=== PATIENT | male | born 1970 | race American Indian/Alaskan Native ===

== ENCOUNTER 2016-06-14 22:07 | Inpatient (IN) | payer MEDICARE ==
[2016-06-15 00:24] LABS: Bacteria,Urine 2+ /HPF (Negative); Bilirubin,Urine NEG (Negative); Blood,Urine LG (Negative); Ketones,Urine NEG (Negative); Leukocyte Esterase,Urine LG (Negative); Nitrite,Urine NEG (Negative); Urobilinogen,Urine < 2.0 mg/dL (<2.0)
[2016-06-15 00:26] LABS: RBC,Urine > 182.0 /HPF (0.0-6.0)
[2016-06-15 00:27] LABS: WBC,Urine > 182.0 /HPF (0.0-6.0)
[2016-06-15] MEDS ORDERED: ZOFRAN IV ONE (05:06)
[2016-06-15] MEDS ORDERED: TORADOL IV ONE (05:06)
[2016-06-15] MEDS ORDERED: NACL 0.9% 1000 ML 1,000 ML IV ONE (05:06)
[2016-06-15] MEDS ORDERED: ROCEPHIN/NS 1 GM/50 ML 50 ML IV ONE ×2 (05:06→16:06)
[2016-06-15 05:52] LABS: Basophils % (Auto) 0.5 % (0.0-1.8); Eosinophils % (Auto) 1.3 % (0.0-4.3); Hematocrit 46.6 % (35.5-45.6); Hemoglobin 15.6 gm/dl (11.8-15.2); Mean Corpuscular HGB Conc 34 % (32-34); Mean Corpuscular Hemoglobin 30 pg (28-32); Mean Corpuscular Volume 91 fl (84-94); Red Blood Count 5.12 M/mm3 (3.65-5.03); Red Cell Distribution Width 14.7 % (13.2-15.2); White Blood Count 11.3 K/mm3 (4.5-11.0)
[2016-06-15 05:56] LABS: Platelet Count 132 K/mm3 (140-440)
--- NOTE | 2016-06-15 06:06 | Cat Scan Report ---
FINAL REPORT PROCEDURE: CT ABDOMEN PELVIS WO CON TECHNIQUE: Computerized axial tomography of the abdomen and pelvis was performed without intravenous contrast. This study is performed without intravascular contrast material and its sensitivity for abdominal and pelvic pathology, including neoplasms, inflammation, abscess, free fluid, thrombosis, arterial dissection and infarction, is reduced compared with a contrast enhanced study. HISTORY: kidney stone COMPARISON: No prior studies are available for comparison. FINDINGS: Visualized lower thorax: No significant abnormality. Liver: Normal size and attenuation. Spleen: Normal size and attenuation. Gallbladder and biliary system: There are gallstones. There is no evidence of cholecystitis or biliary ductal dilatation.. Pancreas: Normal. Adrenals: Normal. Kidneys: There are no kidney stones or ureteral stones.. GI tract: There is no bowel obstruction, colitis or enteritis. The appendix is normal.. Lymph nodes and mesentery: Normal. Vasculature: Normal. Bladder: There is thickening of the urinary bladder wall. There is no mass. Reproductive organs: Normal. Peritoneum: There is no ascites or free air, abscess or adenopathy.. Musculoskeletal structures: No significant abnormality. Other: There is umbilical hernia defect containing omental fat only.. IMPRESSION: There are gallstones. There is no evidence of cholecystitis or biliary ductal dilatation.. There are no kidney stones or ureteral stones.. There is no bowel obstruction, colitis or enteritis. The appendix is normal.. There is thickening of the urinary bladder wall. There is no mass. There is no ascites or free air, abscess or adenopathy.. There is umbilical hernia defect containing omental fat only.. .
--- NOTE | 2016-06-15 06:38 | Emergency Department Report ---
ED Male HPI - General Chief complaint: Urogenital-Male Stated complaint: BLOOD IN URINE Time Seen by Provider: 06/15/16 05:03 Source: patient Mode of arrival: Ambulatory Limitations: No Limitations - History of Present Illness Initial comments: 45-year-old male past medical history HIV, as per patient's CD4 count over 500, undetectable viral load presents with complaint of one week of intermittent hematuria right flank pain fever chills and dysuria. Patient denies any vomiting, occasional sensation of nausea. Patient states that he has had intermittent episodes of bloody urine. Denies any history of kidney stones. States he has been taking his HAART medicines regularly. Onset/Timin -: week(s) Radiation: none Severity: moderate Severity scale (0 -10): 6 Quality: sharp Consistency: intermittent Improves with: none Worsens with: urination - Related Data Sexually active: Yes Home Medications Medication Instructions Recorded Confirmed Last Taken Elviteg/Tavia/Emtric/Tenofo Ala 1 tab PO DAILY 06/15/16 06/15/16 Unknown [Genvoya Tablet] Rosuvastatin (Nf) [Crestor] 10 mg PO QHS 06/15/16 06/15/16 Unknown Allergies Allergy/AdvReac Type Severity Reaction Status Date / Time No Known Allergies Allergy Verified 06/14/16 23:59 ED Review of Systems ROS: Stated complaint: BLOOD IN URINE Other details as noted in HPI Constitutional: denies: chills, fever Eyes: denies: eye pain, eye discharge, vision change ENT: denies: ear pain, throat pain Respiratory: denies: cough, shortness of breath, wheezing Cardiovascular: denies: chest pain, palpitations Endocrine: no symptoms reported Gastrointestinal: denies: abdominal pain, nausea, diarrhea Genitourinary: urgency, dysuria, frequency, hematuria Musculoskeletal: denies: back pain, joint swelling, arthralgia Skin: denies: rash, lesions Neurological: denies: headache, weakness, paresthesias Psychiatric: denies: anxiety, depression Hematological/Lymphatic: denies: easy bleeding, easy bruising ED Past Medical Hx - Past Medical History Previous Medical History?: Yes Hx HIV: Yes Additional medical history: Obesity - Surgical History Past Surgical History?: No - Social History Smoking Status: Never Smoker Substance Use Type: None - Medications Home Medications: Home Medications Medication Instructions Recorded Confirmed Last Taken Type Elviteg/Tavia/Emtric/Tenofo Ala 1 tab PO DAILY 06/15/16 06/15/16 Unknown History [Genvoya Tablet] Rosuvastatin (Nf) [Crestor] 10 mg PO QHS 06/15/16 06/15/16 Unknown History ED Physical Exam - General Limitations: No Limitations General appearance: alert, in no apparent distress - Head Head exam: Present: atraumatic, normocephalic - Eye Eye exam: Present: normal appearance - ENT ENT exam: Present: mucous membranes moist - Neck Neck exam: Present: normal inspection - Respiratory Respiratory exam: Present: normal lung sounds bilaterally. Absent: respiratory distress - Cardiovascular Cardiovascular Exam: Present: regular rate, normal rhythm. Absent: systolic murmur, diastolic murmur, rubs, gallop - GI/Abdominal GI/Abdominal exam: Present: soft, normal bowel sounds - Rectal Rectal exam: Present: deferred - exam: Present: other (positive suprapubic tenderness) - Extremities Exam Extremities exam: Present: normal inspection - Back Exam Back exam: Present: normal inspection, CVA tenderness (R) - Neurological Exam Neurological exam: Present: alert, oriented X3, CN II-XII intact, normal gait - Psychiatric Psychiatric exam: Present: normal affect, normal mood - Skin Skin exam: Present: warm, dry, intact, normal color. Absent: rash ED Course Vital Signs 06/14/16 06/15/16 06/15/16 23:59 05:46 06:16 Temperature 99.4 F Pulse Rate 80 Respiratory 20 18 18 Rate Blood Pressure 139/95 Blood Pressure [Left] O2 Sat by Pulse 100 Oximetry 06/15/16 06/15/16 06:30 14:02 Temperature 99 F 99.5 F Pulse Rate 82 99 H Respiratory 18 18 Rate Blood Pressure Blood Pressure 130/88 131/87 [Left] O2 Sat by Pulse 100 99 Oximetry ED Medical Decision Making - Lab Data Result diagrams: 06/15/16 05:37 06/15/16 05:37 - Medical Decision Making A/P: Cystitis,? Clinical pyelonephritis 1-CT abdomen and pelvis shows no obstructing stone, no perinephric fat stranding , mild bladder wall inflammation 2-pending lactic acid, CMP 3-empirically treated with fluid and Toradol ceftriaxone 1 g 4-discussed case with Dr. Hernandez after reassessment when labs result for possible admission 5- case signed out at 7AM to EDWIN Das, to follow up labs and re-discuss plan w/ dr. hernandez after all results have come back Critical care attestation.: If time is entered above; I have spent that time in minutes in the direct care of this critically ill patient, excluding procedure time. ED Disposition Clinical Impression: Pyelonephritis Disposition: OP ADMITTED IP TO THIS HOSP Is pt being admited?: Yes Does the pt Need Aspirin: No Condition: Stable
[2016-06-15 06:54] LABS: Alanine Aminotransferase 12 units/L (7-56); Albumin 4.4 g/dL (3.9-5); Albumin/Globulin Ratio 1.2 %; Alkaline Phosphatase 63 units/L (35-129); Anion Gap 20 mmol/L; BUN/Creatinine Ratio 8.57; Bilirubin,Total 0.5 mg/dL (0.1-1.2); Blood Urea Nitrogen 12 mg/dL (9-20); Calcium 9.2 mg/dL (8.4-10.2); Carbon Dioxide 23 mmol/L (22-30); Chloride 100.2 mmol/L (98-107); Creatine Kinase 200 units/L (55-170); Glucose 86 mg/dL (75-100); Potassium 4.2 mmol/L (3.6-5.0); Sodium 139 mmol/L (137-145); Total Protein 8.2 g/dL (6.3-8.2)
--- NOTE | 2016-06-15 13:37 | Event Note ---
Date: 06/15/16 See H/p in reports Acute Pyelonephritis
[2016-06-15] MEDS ORDERED: TYLENOL PO PRN (13:38)
[2016-06-15] MEDS ORDERED: PERCOCET 5/325 PO PRN (13:38)
[2016-06-15] MEDS ORDERED: MILK OF MAGNESIA PO PRN (13:38)
[2016-06-15] MEDS ORDERED: DULCOLAX PR PRN (13:38)
[2016-06-15] MEDS ORDERED: ZOFRAN IV PRN (13:38)
[2016-06-15] MEDS ORDERED: DILAUDID IV PRN (13:38)
[2016-06-15] MEDS ORDERED: ROCEPHIN 2,000 MG in NACL 0.9% 50 ML IV SCH (14:00)
[2016-06-15] MEDS ORDERED: LOVENOX SUB-Q SCH (14:00)
[2016-06-15] MEDS ORDERED: ROCEPHIN/NS 1 GM/50 ML 50 ML IV SCH (15:00)
[2016-06-15] MEDS ORDERED: NACL 0.9% 1000 ML 1,000 ML ONE (16:06)
[2016-06-15] MEDS ORDERED: PERCOCET 5/325 ONE (16:07)
[2016-06-15] MEDS: D5NS 1,000 ML IV SCH ×2 (16:51→21:15)
--- NOTE | 2016-06-15 18:29 | History and Physical Report ---
CHIEF COMPLAINT: Left flank pain and hematuria and also right flank pain for the last 1 week. Also, fever, chills, and dysuria for 1 week. HISTORY OF PRESENT ILLNESS: A 45-year-old -[place] male with history of HIV and CD4 count of more than 400, presents with intermittent hematuria and right flank pain, fever, chills, and dysuria for the last one week. No nausea, no vomiting. Occasional nausea. Intermittent episodes of bloody urine. Denies any history of kidney stones. The patient has been taking antiretroviral medications. PAST MEDICAL HISTORY: Significant for HIV and obesity. PAST SURGICAL HISTORY: None. SOCIAL HISTORY: Does not smoke. No alcohol, no recreational drugs. FAMILY HISTORY: Significant for hypertension. REVIEW OF SYSTEMS: CONSTITUTIONAL: No weight loss or weight gain. Has fever and chills off and on for the last one week. HEENT: Unremarkable. Pupils equal and reactive. No sore throat, No post nasal drip. CARDIOVASCULAR: No chest pain, no palpitations. No diaphoresis. RESPIRATORY SYSTEM: No wheezing. No cough. GASTROINTESTINAL: Slight nausea present. No vomiting, no diarrhea. GENITOURINARY SYSTEM: Intermittent hematuria and right flank pain present. Fever and chills present. Pain is about 6 to 8 on a scale of 1 to 10. MUSCULOSKELETAL SYSTEM: No joint pains. CENTRAL NERVOUS SYSTEM: No syncope, no seizures. SKIN: No rashes. PSYCHIATRIC: No depression. A 14-point review of systems done. Otherwise, negative. PHYSICAL EXAMINATION: GENERAL: Young male, cooperative during examination. VITAL SIGNS: Temperature is 99.4, pulse is 80, respirations are 20, blood pressure is 139/95, O2 sats are 100%. HEENT: Unremarkable. Pupils equal and reactive. NECK: Supple. No lymphadenopathy, no thyromegaly. LUNGS: Clear to auscultation and percussion. Good air entry. CARDIOVASCULAR: S1, S2 heard. No gallop, no murmur, no rub. Apical impulse in left fifth intercostal space in midclavicular line. ABDOMEN: Soft and benign. No hepatosplenomegaly, no guarding, no rigidity. Hernial orifices are normal. EXTREMITIES: Good pedal pulses. No pedal edema. CENTRAL NERVOUS SYSTEM: Alert and oriented x 4, nonfocal exam. LABORATORY DATA: Significant for white count of 11,300; hemoglobin of 15.6; hematocrit 46.6; platelets of 132,000. Urine shows more than 182 white cells and more than 182 red cells, it is cloudy. Specific gravity is 1.018. Total CK is 200. Electrolytes are normal. CT of the abdomen shows gallstones. No evidence of cholecystitis or biliary ductal dilatation. No kidney stones or ureteral stones. There is thickening of the urinary bladder wall. There is no mass. There is umbilical hernia defect containing omental fat only. ASSESSMENT AND PLAN: 1. Acute pyelonephritis because of right flank pain, hematuria, and dysuria. White cells are more than 182 cells. The patient is started on Rocephin. Pending urine cultures. Urine cultures ordered. Blood cultures ordered. 2. Human immunodeficiency virus. Continue his antiretrovirals. 3. Deep venous thrombosis prophylaxis, Lovenox 40 mg subq daily. JOB# [id number] LAINEY/DELIA ALVARENGA
--- NOTE | 2016-06-16 | Admit Criteria Form ---
Admission Criteria Documentation: PYELONEPHRITIS, ACUTE Clinical Indications for Admission to Inpatient Care (Place 'X' for any and all applicable criteria): Admission is indicated for ANY ONE of the following 1,2,3,4,5 [ ]I. Outpatient treatment has failed or is not feasible (eg, multidrug- resistant organism).5 [ ]II. beyond 24 weeks' gestation6 [ ]III. Hemodynamic instability [X ]IV. Immunocompromised state (eg, AIDS, diabetes, sickle cell disease) [ ]V. Known renal or urologic abnormalities (eg, indwelling catheter, structural abnormalities, renal calculi, urinary stent, previous urologic surgery) [ ]. Condition that requires drainage procedure, including ANY ONE of the following: [ ]a) Urinary obstruction [ ]b) Pyelitis [ ]c) Pyonephrosis [ ]d) Renal or perinephric abscess [ ]e) Emphysematous pyelonephritis 7 [ ]VII. Inpatient admission required rather than observation care (Also use Pyelonephritis, Acute: Observation Care Criteria as appropriate) because of ANY ONE of the following: [ ]a) High fever or infection requiring inpatient admission as indicated by ANY ONE of [id number] [ ]A. Documented bacteremia [ ]B. Temp>104.9 [id number] (oral) [ ]C. Temp>103.10F (oral) or <96.80F (rectal) that does not respond to all emergency treatment [ ]b) Acute renal failure [ ]c) Other significant finding or clinical condition judged not to be within the scope of observation care [ ]d) IV fluid to replace significant ongoing (eg, for over 24hrs) losses (> 3 L/m2 per day) [ ]e) Other condition,treatment or monitoring requiring inpatient admission The original [employer] content created by [employer] has been revised. The portions of the content which have been revised are identified through the use of italic text or in bold, and [facility] has neither reviewed nor approved the modified material. All other unmodified content is copyright [employer]. Please see references footnoted in the original [employer] edition 2016 Admission Criteria Met: Yes
[2016-06-16 05:35] LABS: Basophils % (Auto) 0.6 % (0.0-1.8); Eosinophils % (Auto) 1.4 % (0.0-4.3); Hematocrit 40.6 % (35.5-45.6); Hemoglobin 13.5 gm/dl (11.8-15.2); Mean Corpuscular HGB Conc 33 % (32-34); Mean Corpuscular Hemoglobin 30 pg (28-32); Mean Corpuscular Volume 91 fl (84-94); Platelet Count 186 K/mm3 (140-440); Red Blood Count 4.49 M/mm3 (3.65-5.03); Red Cell Distribution Width 14.3 % (13.2-15.2); White Blood Count 10.9 K/mm3 (4.5-11.0)
[2016-06-16 05:42] LABS: Alanine Aminotransferase 8 units/L (7-56); Albumin 3.6 g/dL (3.9-5); Albumin/Globulin Ratio 1.2 %; Alkaline Phosphatase 54 units/L (35-129); BUN/Creatinine Ratio 8.33; Bilirubin,Total 0.4 mg/dL (0.1-1.2); Blood Urea Nitrogen 10 mg/dL (9-20); Calcium 8.3 mg/dL (8.4-10.2); Carbon Dioxide 24 mmol/L (22-30); Glucose 106 mg/dL (75-100); Potassium 3.9 mmol/L (3.6-5.0); Sodium 140 mmol/L (137-145); Total Protein 6.7 g/dL (6.3-8.2)
[2016-06-16 05:44] LABS: Anion Gap 16 mmol/L
[2016-06-16 07:59] VITALS: BP 141/81
--- NOTE | 2016-06-16 09:40 | Discharge Summary ---
Providers - Providers Date of Admission: 06/15/16 14:31 Date of discharge: 06/16/16 Attending physician: NAYE NERI Primary care physician: ROBBIN HENDRICKSON Hospitalization Condition: Stable Hospital course: This is a 45-year-old -[place] male with history of HIV presents to the hospital with intermittent hematuria and right flank pain fevers chills and dysuria for [address] scan of the abdomen on admission which showed gallstones and no evidence of cholecystitis or biliary ductal dilatation no kidney stone or ureteral stone. Patient was admitted to the hospital and placed on Rocephin. Patient did have elevated white count on admission which normalized following admission. Patient was tolerating diet and abdominal pain resolved. Patient was discharged back home in stable condition with by mouth Lovenox to complete total 1 week of antibiotic course. Discharge diagnosis: Acute right pyelonephritis History of HIV Disposition: DISCHARGED TO HOME OR SELFCARE Time spent for discharge: 31 minute Core Measure Documentation - Palliative Care Palliative Care/ Comfort Measures: Not Applicable - Core Measures Any of the following diagnoses?: none Exam - Constitutional Vitals: Temp Pulse Resp BP Pulse Ox 98.8 F 68 20 141/81 97 06/16/16 07:58 06/16/16 07:58 06/16/16 07:58 06/16/16 07:58 06/16/16 07:58 General appearance: Present: no acute distress - EENT Eyes: Present: EOM intact. Absent: scleral icterus, conjunctival injection ENT: clear oral mucosa, dentition normal - Neck Neck: Present: supple, normal ROM - Respiratory Respiratory effort: normal Respiratory: bilateral: CTA - Cardiovascular Rhythm: regular Heart Sounds: Present: S1 & S2 - Extremities Extremities: no ischemia, No edema Peripheral Pulses: within normal limits - Abdominal General gastrointestinal: Present: soft, non-tender, non-distended, normal bowel sounds - Neurologic Neurologic: no focal deficits, moves all extremities Plan Activity: advance as tolerated Weight Bearing Status: Weight Bear as Tolerated Diet: low cholesterol, low salt Follow up with: ROBBIN HENDRICKSON MD [Primary Care Provider] - 7 Days Prescriptions: Levofloxacin [Levaquin] 750 mg PO QDAY #6 tablet
[2016-06-16] MEDS ORDERED: ROCEPHIN/NS 2 GM/100 ML 100 ML IV SCH (10:00)
[2016-06-17] MEDS ORDERED: NON-FORMULARY PO SCH (08:00)
== END 2016-06-16 13:02 | disposition home or self-care (01) | DRG 690 ==
LOC: ED 22:07 → 3A 06-15 14:31 → 2B-SURG 06-15 15:24
PROVIDERS: ADMIT Internal Medicine; ATTEND Internal Medicine
DX: N10 Acute pyelonephritis (principal); Z68.41 Body mass index [BMI] 40.0-44.9, adult; E66.9 Obesity, unspecified; K80.80 Other cholelithiasis without obstruction; Z21 Asymptomatic human immunodeficiency virus [HIV] infection status; Z79.899 Other long term (current) drug therapy; Z82.49 Family history of ischemic heart disease and other diseases of the circulatory system
CPT/HCPCS: 36415; 74176; 80053; 81001; 82140; 82550; 82805; 85025; 87040; 87086; 96365; 96375; J0696; J1650; J1885; J2405; J3246; J7030; J7042

== ENCOUNTER 2016-07-14 11:57 | Emergency (ER) | payer MEDICARE ==
[2016-07-14 13:35] LABS: Basophils % (Auto) 1.2 % (0.0-1.8); Eosinophils % (Auto) 4.7 % (0.0-4.3); Hematocrit 45.2 % (35.5-45.6); Hemoglobin 15.1 gm/dl (11.8-15.2); Mean Corpuscular HGB Conc 33 % (32-34); Mean Corpuscular Hemoglobin 30 pg (28-32); Mean Corpuscular Volume 90 fl (84-94); Platelet Count 224 K/mm3 (140-440); Red Blood Count 5.04 M/mm3 (3.65-5.03); Red Cell Distribution Width 14.1 % (13.2-15.2); White Blood Count 6.8 K/mm3 (4.5-11.0)
[2016-07-14 13:53] LABS: Alanine Aminotransferase 8 units/L (7-56); Albumin 4.4 g/dL (3.9-5); Albumin/Globulin Ratio 1.3 %; Alkaline Phosphatase 59 units/L (35-129); Anion Gap 17 mmol/L; BUN/Creatinine Ratio 8.46; Bilirubin,Total 0.3 mg/dL (0.1-1.2); Blood Urea Nitrogen 11 mg/dL (9-20); Carbon Dioxide 26 mmol/L (22-30); Chloride 100.2 mmol/L (98-107); Glucose 88 mg/dL (75-100); Lipase 23 units/L (13-60); Potassium 4.6 mmol/L (3.6-5.0); Sodium 139 mmol/L (137-145); Total Protein 7.9 g/dL (6.3-8.2)
[2016-07-14 14:26] LABS: Bilirubin,Urine NEG (Negative); Blood,Urine NEG (Negative); Ketones,Urine NEG (Negative); Leukocyte Esterase,Urine NEG (Negative); Mucus,Urine FEW /HPF; Nitrite,Urine NEG (Negative); Protein,Urine <15 mg/dL mg/dL (Negative); Urobilinogen,Urine < 2.0 mg/dL (<2.0)
[2016-07-14] MEDS ORDERED: ZOFRAN ODT PO ONE (21:03)
[2016-07-14] MEDS ORDERED: TORADOL IM ONE (21:03)
[2016-07-14] MEDS ORDERED: HCTZ PO ONE (21:03)
[2016-07-14] MEDS ORDERED: NITROSTAT SL ONE (21:26)
[2016-07-14] MEDS ORDERED: IMODIUM ONE (21:52)
--- NOTE | 2016-07-14 22:25 | Emergency Department Report ---
HPI - General Chief Complaint: Abdominal Pain Time Seen by Provider: 07/14/16 20:25 - HPI HPI: The patient is a 46-year-old male who presents for evaluation of abdominal pain. The patient reports abdominal pain for the past 5 days, concentrated to the bilateral lower abdomen, currently 5/10 in severity, cramping and tightening in quality, and associated with nausea, multiple episodes of nonbilious nonbloody emesis, and multiple episodes of loose watery stools. The patient has a secondary complaint of intermittent sharp left-sided chest pain, for greater than the past week, currently resolved. The patient denies fever, trauma to the chest or abdomen, dyspnea, hemoptysis, syncope, leg swelling, blood in the stool, dark tarry stool, dysuria, hematuria, flank pain. ED Past Medical Hx - Past Medical History Previous Medical History?: Yes Hx HIV: Yes Additional medical history: Obesity - Surgical History Past Surgical History?: No - Social History Smoking Status: Never Smoker Substance Use Type: None - Medications Home Medications: Home Medications Medication Instructions Recorded Confirmed Last Taken Type Elviteg/Tavia/Emtric/Tenofo Ala 1 tab PO DAILY 06/15/16 06/15/16 Unknown History [Genvoya Tablet] Rosuvastatin (Nf) [Crestor] 10 mg PO QHS 06/15/16 06/15/16 Unknown History Levofloxacin [Levaquin] 750 mg PO QDAY #6 tablet 06/16/16 Unknown Rx HYDROcodone/APAP 7.5-325 [[place] 1 each PO Q8HR PRN #14 tablet 07/14/16 Unknown Rx 7.5-325 mg TAB] Lisinopril [Zestril TAB] 5 mg PO QDAY #31 tablet 07/14/16 Unknown Rx Ondansetron [Zofran TAB] 4 mg PO Q8HR PRN #20 tablet 07/14/16 Unknown Rx ED Review of Systems ROS: Stated complaint: ABD PAIN/N/V/D Other details as noted in HPI Constitutional: denies: fever ENT: denies: throat or neck pain Respiratory: denies: cough, shortness of breath Cardiovascular: reports chest pain Endocrine: denies unexplained weight loss or gain Gastrointestinal: reports abdominal pain, nausea Genitourinary: denies: dysuria Musculoskeletal: denies: leg swelling Skin: denies: rash Neurological: denies: headache Hematological/Lymphatic: denies: easy bleeding or easy bruising Psych: denies sadness or hopelessness Physical Exam - Physical Exam Vital Signs: Vital Signs 07/14/16 12:11 Temperature 98.3 F Pulse Rate 90 Respiratory 16 Rate Blood Pressure 139/92 O2 Sat by Pulse 100 Oximetry Physical Exam: = General: well-nourished, well-developed, no acute distress Head: Normocephalic, atraumatic Eyes: normal sclera ENT: Mucous membranes are pink and moist Neck: trachea midline, neck supple, No neck stiffness, no cervical adenopathy Respiratory: Breath sounds equal bilaterally, no wheezing, rales, or rhonchi Cardio: S1 and S2 present, no murmurs, rubs, gallops, capillary refill is brisk Abdomen: Normoactive bowel sounds, soft abdomen, bilateral lower abdominal tenderness to palpation present, no pain at McBurney's point, no rigidity, no guarding or rebound tenderness, Larry's sign negative, no epigastric tenderness Musc: No pitting edema Skin: No rash Neuro: no facial drooping, normal speech Psych: Normal affect ED Course Vital Signs 07/14/16 12:11 Temperature 98.3 F Pulse Rate 90 Respiratory 16 Rate Blood Pressure 139/92 O2 Sat by Pulse 100 Oximetry ED Medical Decision Making - Lab Data Result diagrams: 07/14/16 13:22 07/14/16 13:22 - Medical Decision Making The patient was seen and examined by myself. The patient is placed on a library monitor and continuous pulse ox. On initial evaluation, the patient was found to be in no distress. EKG was negative for findings suggestive of acute cardiac infarct. Labs and imaging are obtained. The patient is given an IM dose of Toradol for his pain, Zofran for his nausea, and a tablet of nitroglycerin and hctz for elevated blood pressure. Chest x-ray is negative for pneumothorax, focal consolidation, pulmonary vascular congestion, pleural effusion, or other obvious acute cardiopulmonary disease process. Lab results were non-concerning including levels of troponin, WBC, hemoglobin, hematocrit, electrolytes, renal function, LFTs, lipase, and urinalysis. The patient was reevaluated and reported that their symptoms were markedly improved. As the patient has a RANDOLPH risk score less than 2, and a well's score less than 2, the patient is at low risk of ACS or pulmonary emboli etiology of their symptoms. The patient is stable for discharge with outpatient follow-up. The patient is given follow-up and return instructions. The patient expressed understanding and agreed with the plan. The patient is discharged in stable condition. Critical care attestation.: If time is entered above; I have spent that time in minutes in the direct care of this critically ill patient, excluding procedure time. ED Disposition Clinical Impression: Abdominal pain, acute, bilateral lower quadrant, Asymptomatic hypertensive urgency, Nausea and vomiting in adult Disposition: DISCHARGED TO HOME OR SELFCARE Is pt being admited?: No Does the pt Need Aspirin: No Condition: Stable Instructions: Chronic Hypertension (ED), Gastroenteritis (ED), Food Poisoning ( ED) Referrals: PRIMARY CARE, [Primary Care Provider] - 3-5 Days Time of Disposition: 21:04
[2016-07-14 23:22] VITALS: BP 132/87
== END 2016-07-14 22:05 | disposition home or self-care (01) ==
LOC: ED 11:57
DX: R10.30 Lower abdominal pain, unspecified (principal); R11.2 Nausea with vomiting, unspecified
CPT/HCPCS: 36415; 80053; 81001; 83690; 84484; 85025; 93005; 93010; 96372; 99284; J1885; Q0162

== ENCOUNTER 2018-10-08 21:34 | Emergency (ER) | payer MEDICARE ==
--- NOTE | 2018-10-08 21:54 | Emergency Department Report ---
Blank Doc - Documentation Documentation: This is a 48-year-old male that presents with syncopal episode. PAtient stated was diagnosed today with the flu by his PCP. This initial assessment/diagnostic orders/clinical plan/treatment(s) is/are subject to change based on patient's health status, clinical progression and re- assessment by fellow clinical providers in the ED. Further treatment and workup at subsequent clinical providers discretion. Patient/guardians urged not to elope from the ED as their condition may be serious if not clinically assessed and managed. Initial orders include: 1- Patient sent to MAIN ED for further evaluation and treatment 2- Labs 3- EKG 4- CXR
[2018-10-08 22:12] LABS: Basophils # (Auto) 0.1 K/mm3 (0.0-0.1); Basophils % (Auto) 1.1 % (0.0-1.8); Eosinophils # (Auto) 0.4 K/mm3 (0.0-0.4); Hematocrit 39.9 % (35.5-45.6); Hemoglobin 13.8 gm/dl (11.8-15.2); Lymphocytes # (Auto) 2.2 K/mm3 (1.2-5.4); Lymphocytes % (Auto) 35.6 % (13.4-35.0); Mean Corpuscular HGB Conc 35 % (32-34); Mean Corpuscular Volume 91 fl (84-94); Monocytes # (Auto) 0.8 K/mm3 (0.0-0.8); Platelet Count 195 K/mm3 (140-440); Red Cell Distribution Width 14.3 % (13.2-15.2)
[2018-10-08 22:23] LABS: INR 0.95 (0.87-1.13); Partial Thromboplastin Time 27.6 Sec. (24.2-36.6)
[2018-10-08 22:37] LABS: BUN/Creatinine Ratio 9; Blood Urea Nitrogen 14 mg/dL (9-20); Calcium 9.3 mg/dL (8.4-10.2); Hemolysis Index 0
--- NOTE | 2018-10-08 22:52 | Cat Scan Report ---
PROCEDURE: CT HEAD/BRAIN WO CON TECHNIQUE: Computerized tomography of the head was performed without contrast material. CT DOSE LENGTH PRODUCT: 926.5 mGycm HISTORY: Syncope COMPARISONS: None . FINDINGS: Skull and scalp: Normal . Paranasal sinuses: Mucosal thickening in the maxillary and sphenoid, and ethmoid sinuses bilaterally is noted . Ventricles and subarachnoid spaces: Normal . Cerebrum: No evidence of hemorrhage, acute infarction or mass . Cerebellum and brainstem: No evidence of hemorrhage, acute infarction or mass . Vasculature: Normal . Other: None . ASPECTS: 10 IMPRESSION: No acute intracranial abnormality. Chronic sinusitis of the maxillary, ethmoid, and sphen oid sinuses. This document is electronically signed by Lesia Weaver MD., Oct 08 2018 10:50:38 PM ET
[2018-10-08] MEDS ORDERED: IBUPROFEN PO ONE (23:06)
[2018-10-08] MEDS ORDERED: FLONASE NS ONE (23:06)
[2018-10-08] MEDS ORDERED: TYLENOL PO ONE (23:06)
[2018-10-08] MEDS ORDERED: PROVENTIL IH ONE (23:06)
[2018-10-08] MEDS ORDERED: TESSALON PERLES PO ONE (23:06)
[2018-10-08] MEDS ORDERED: NACL 0.9% 500 ML 500 ML IV ONE (23:06)
--- NOTE | 2018-10-08 23:10 | Emergency Department Report ---
ED Syncope HPI - General Chief Complaint: Syncope Stated Complaint: PASS OUT Time Seen by Provider: 10/08/18 21:53 Source: patient, family Exam Limitations: no limitations - History of Present Illness Initial Comments: This is a 48-year-old gentleman. The patient is not known to this provider previously. The patient reports a past history of HIV, currently on highly active antiretroviral therapy, reports undetectable viral load, CD4 count of 7:30. Additional past history includes obesity. The patient presents to the emergency room with family after reported episode of syncope. The patient reports that he's been having a cough and dry mucous for the past 4 days. He reports that earlier on today, was coughing, and abscess, around 7:30 PM, "passed out." Prior to passing out, he endorses a heavy coughing spell. Prior to passing out, he denies headache, neck pain, chest pain, abdominal pain, leg pain or leg swelling. The patient denies recent hospitalizations and oral contraceptive use. Patient reports a recent road trip to [place] within the past 3-4 weeks. He denies fevers, chills, vomiting, abdominal pain, urinary symptoms. Timing/Prior Episodes: single episode today Context: coughing Loss of Consciousness: brief (seconds) Current Symptoms: back to normal - Related Data Allergies/Adverse Reactions: Allergies No Known Allergies Allergy (Verified 06/14/16 23:59) Home Medications: Ambulatory Orders Elviteg/Tavia/Emtric/Tenofo Ala [Genvoya (Nf)] 1 tab PO DAILY 06/15/16 Rosuvastatin (Nf) [Crestor] 10 mg PO QHS 06/15/16 levoFLOXacin [Levaquin] 750 mg PO QDAY #6 tablet 06/16/16 HYDROcodone/APAP 7.5-325 [[place]ade 7.5-325 mg TAB] 1 each PO Q8HR PRN #14 tablet 07/14/16 Lisinopril [Zestril TAB] 5 mg PO QDAY #31 tablet 07/14/16 Ondansetron [Zofran TAB] 4 mg PO Q8HR PRN #20 tablet 07/14/16 Albuterol Sulfate [Proair Respiclick] 90 mcg IH Q4HR PRN #2 aer.pow.ba 10/08/18 Benzonatate [Tessalon Perles] 100 mg PO Q8HR PRN #30 capsule 10/08/18 Ibuprofen [Motrin] 600 mg PO Q8H PRN #30 tablet 10/09/18 ED Review of Systems ROS: Stated complaint: PASS OUT Other details as noted in HPI Constitutional: denies: fever, malaise ENT: congestion Respiratory: cough Cardiovascular: syncope. denies: chest pain Gastrointestinal: denies: abdominal pain, nausea, vomiting Genitourinary: denies: dysuria Musculoskeletal: denies: back pain, arthralgia, myalgia Skin: denies: lesions Neurological: denies: weakness Psychiatric: denies: anxiety ED Past Medical Hx - Past Medical History Hx Hypertension: Yes Hx HIV: Yes Additional medical history: Obesity and HLD - Surgical History Past Surgical History?: No - Social History Smoking Status: Never Smoker Substance Use Type: None - Medications Home Medications: Home Medications Medication Instructions Recorded Confirmed Last Taken Type Elviteg/Atvia/Emtric/Tenofo Ala 1 tab PO DAILY 06/15/16 06/15/16 Unknown History [Genvoya (Nf)] Rosuvastatin (Nf) [Crestor] 10 mg PO QHS 06/15/16 06/15/16 Unknown History levoFLOXacin [Levaquin] 750 mg PO QDAY #6 tablet 06/16/16 Unknown Rx HYDROcodone/APAP 7.5-325 [Wade 1 each PO Q8HR PRN #14 tablet 07/14/16 Unknown Rx 7.5-325 mg TAB] Lisinopril [Zestril TAB] 5 mg PO QDAY #31 tablet 07/14/16 Unknown Rx Ondansetron [Zofran TAB] 4 mg PO Q8HR PRN #20 tablet 07/14/16 Unknown Rx Albuterol Sulfate [Proair 90 mcg IH Q4HR PRN #2 aer.pow.ba 10/08/18 Unknown Rx Respiclick] Benzonatate [Tessalon Perles] 100 mg PO Q8HR PRN #30 capsule 10/08/18 Unknown Rx Ibuprofen [Motrin] 600 mg PO Q8H PRN #30 tablet 10/09/18 Unknown Rx ED Physical Exam - General Limitations: No Limitations General appearance: alert, in no apparent distress - Head Head exam: Present: atraumatic, normocephalic - Eye Eye exam: Present: normal appearance, PERRL, EOMI, other (visual acuity intact to finger counting, color perception, reading at a close distance). Absent: nystagmus - ENT ENT exam: Present: normal exam, normal orophraynx, mucous membranes moist, normal external ear exam - Neck Neck exam: Present: normal inspection, full ROM. Absent: tenderness, meningismus - Respiratory Respiratory exam: Present: normal lung sounds bilaterally. Absent: respiratory distress - Cardiovascular Cardiovascular Exam: Present: regular rate, normal rhythm, normal heart sounds. Absent: bradycardia, tachycardia, irregular rhythm, systolic murmur, diastolic murmur, rubs, gallop - GI/Abdominal GI/Abdominal exam: Present: soft. Absent: distended, tenderness, guarding, rebound, rigid, pulsatile mass - Rectal Rectal exam: Present: deferred - Extremities Exam Extremities exam: Present: normal inspection, full ROM, other (2+ pulses noted in the bilateral upper, lower extremities. Compartments soft. No long bony tenderness. The pelvis is stable.). Absent: pedal edema, joint swelling, calf tenderness - Back Exam Back exam: Present: normal inspection, full ROM, CVA tenderness (L). Absent: tenderness, CVA tenderness (R), paraspinal tenderness, vertebral tenderness - Neurological Exam Neurological exam: Present: alert, oriented X3, normal gait (there is no past- pointing. There is normal spps-fp-musw. There is negative pronator drift.), other (Extraocular movements intact. Tongue midline. No facial droop. Facial sensation intact to light touch in the V1, V2, V3 distribution bilaterally. 5 and 5 strength in 4 extremities.. Sensation is intact to light touch in 4 extremities.). Absent: motor sensory deficit - Psychiatric Psychiatric exam: Present: normal affect, normal mood - Skin Skin exam: Present: warm, dry, intact, normal color. Absent: rash ED Course Vital Signs 10/08/18 10/08/18 10/08/18 21:53 22:43 23:29 Temperature 99.8 F H Pulse Rate 86 89 78 Respiratory 18 14 18 Rate Blood Pressure 150/91 Blood Pressure 142/88 132/80 [Left] O2 Sat by Pulse 98 99 99 Oximetry - Reevaluation(s) Reevaluation #1: 10/08/18 23:56 Differential diagnosis, including but not limited to: Bronchitis, orthostasis, vagal event, structural cardiac disease, pulmonary embolus Assessment and plan: 48-year-old gentleman, HIV positive, recent reported road trip to [place], with single episode of syncope, likely provoked by coughing spell. Suspect bronchitis. Patient not tachycardic, not hypoxic, perc negative, but given obesity, recent trip to [place], and history of HIV positivity, please send a d-dimer to risk stratify the patient for pulmonary embolus as we consider him low pretest probability, and it comes back elevated. CT scan of the chest is ordered. Patient treated supportively for presumed bronchitis. Patient reports episode of syncope at approximately 7:30 PM. It is now 4.5 ho urs after the initial event, patient has been observed in the emergency room for a few hours, he's not had an additional episode. Reevaluation #2: 10/09/18 00:34 Repeat EKG is unremarkable, unchanged when compared to prior. Reevaluation #3: 10/09/18 01:27 Troponin negative 2. EKG unchanged 2. CT scan of the chest negative for acute disease. Patient reports his episode of syncope was at 7:30 PM on the preceding evening. Patient is observed in the ER 6 hours status post event, without clinical decompensation. He is resting comfortably, and in no acute distress. Most likely diagnosis is vagal event secondary to cough, bronchitis. We will discharge the patient at this point in time. He will be instructed to follow up. ED Medical Decision Making - Lab Data Result diagrams: 10/08/18 21:59 10/08/18 21:59 Vital Signs 10/08/18 10/08/18 10/08/18 21:53 22:43 23:29 Temperature 99.8 F H Pulse Rate 86 89 78 Respiratory 18 14 18 Rate Blood Pressure 150/91 Blood Pressure 142/88 132/80 [Left] O2 Sat by Pulse 98 99 99 Oximetry Lab Results 10/08/18 10/08/18 10/08/18 Range/Units 21:59 21:59 21:59 WBC 6.1 (4.5-11.0) K/mm3 RBC 4.40 (3.65-5.03) M/mm3 Hgb 13.8 (11.8-15.2) gm/dl Hct 39.9 (35.5-45.6) % MCV 91 (84-94) fl MCH 31 (28-32) pg MCHC 35 H (32-34) % RDW 14.3 (13.2-15.2) % Plt Count 195 (140-440) K/mm3 Lymph % (Auto) 35.6 H (13.4-35.0) % [place] % (Auto) 13.0 H (0.0-7.3) % Eos % (Auto) 7.0 H (0.0-4.3) % Baso % (Auto) 1.1 (0.0-1.8) % Lymph # 2.2 (1.2-5.4) K/mm3 [place] # 0.8 (0.0-0.8) K/mm3 Eos # 0.4 (0.0-0.4) K/mm3 Baso # 0.1 (0.0-0.1) K/mm3 Seg Neutrophils % 43.3 (40.0-70.0) % Seg Neutrophils # 2.6 (1.8-7.7) K/mm3 PT 13.2 (12.2-14.9) Sec. INR 0.95 (0.87-1.13) APTT 27.6 (24.2-36.6) Sec. D-Dimer (0-234) ng/mlDDU Sodium 141 (137-145) mmol/L Potassium 4.0 (3.6-5.0) mmol/L Chloride 101.3 (98-107) mmol/L Carbon Dioxide 29 (22-30) mmol/L Anion Gap 15 mmol/L BUN 14 (9-20) mg/dL Creatinine 1.5 (0.8-1.5) mg/dL Estimated GFR > 60 ml/min BUN/Creatinine Ratio 9 % Glucose 112 H (75-100) mg/dL Calcium 9.3 (8.4-10.2) mg/dL Magnesium (1.7-2.3) mg/dL Total Creatine Kinase (55-170) units/L Troponin T (0.00-0.029) ng/mL 10/08/18 10/08/18 10/08/18 Range/Units 21:59 23:11 23:11 WBC (4.5-11.0) K/mm3 RBC (3.65-5.03) M/mm3 Hgb (11.8-15.2) gm/dl Hct (35.5-45.6) % MCV (84-94) fl MCH (28-32) pg MCHC (32-34) % RDW (13.2-15.2) % Plt Count (140-440) K/mm3 Lymph % (Auto) (13.4-35.0) % [place] % (Auto) (0.0-7.3) % Eos % (Auto) (0.0-4.3) % Baso % (Auto) (0.0-1.8) % Lymph # (1.2-5.4) K/mm3 [place] # (0.0-0.8) K/mm3 Eos # (0.0-0.4) K/mm3 Baso # (0.0-0.1) K/mm3 Seg Neutrophils % (40.0-70.0) % Seg Neutrophils # (1.8-7.7) K/mm3 PT (12.2-14.9) Sec. INR (0.87-1.13) APTT (24.2-36.6) Sec. D-Dimer 368.15 H (0-234) ng/mlDDU Sodium (137-145) mmol/L Potassium (3.6-5.0) mmol/L Chloride (98-107) mmol/L Carbon Dioxide (22-30) mmol/L Anion Gap mmol/L BUN (9-20) mg/dL Creatinine (0.8-1.5) mg/dL Estimated GFR ml/min BUN/Creatinine Ratio % Glucose (75-100) mg/dL Calcium (8.4-10.2) mg/dL Magnesium 1.90 (1.7-2.3) mg/dL Total Creatine Kinase 512 H (55-170) units/L Troponin T < 0.010 (0.00-0.029) ng/mL - EKG Data -: EKG Interpreted by De EKG shows normal: sinus rhythm, axis, intervals, QRS complexes, ST-T waves - EKG Data When compared to previous EKG there are: no significant change Interpretation: no acute changes, normal EKG, unchanged when compared t 10/08/18 23:56 EKG shows a sinus rhythm, 81 bpm, normal axis, normal intervals, unremarkable EKG, not consistent with ST elevation myocardial infarction, appears unchanged from prior EKG from 07/14/2016 - Radiology Data Radiology results: pending, report reviewed, image reviewed X-ray the chest is negative for acute disease. Noncontrast CT scan of the brain is negative for acute disease. Critical care attestation.: If time is entered above; I have spent that time in minutes in the direct care of this critically ill patient, excluding procedure time. ED Disposition Clinical Impression: Bronchitis, History of syncope Disposition: DC- TO HOME OR SELFCARE Is pt being admited?: No Does the pt Need Aspirin: No Condition: Stable Additional Instructions: Continue outpatient medications. Take the cough medications, breathing medic ations as needed/directed. Do not drive or operate motor vehicles for the next 6 months, almost cleared by either primary care doctor, or a car pilot. Symptoms likely coming from bronchitis/viral syndrome. Symptoms may last the next 3-6 weeks. There is typical for bronchitis. if patient takes metformin, do not take metformin for the next 48 hours. Please follow up with a primary care doctor or car pilot within the next 4-7 days. Return to the emergency room right away with new pain, worsening pain, migration of pain, projectile vomiting, change in mental status, confusion, inability to tolerate liquid feeds, new, worsening or different symptoms not present on the initial ER evaluation. Prescriptions: Ibuprofen [Motrin] 600 mg PO Q8H PRN #30 tablet PRN Reason: Pain Albuterol Sulfate [Proair Respiclick] 90 mcg IH Q4HR PRN #2 aer.pow.ba PRN Reason: Wheezing Benzonatate [Tessalon Perles] 100 mg PO Q8HR PRN #30 capsule PRN Reason: Cough Referrals: SOFIYA MALHOTRA MD [Staff Physician] - 3-5 Days KORY ETIENNE MD [Staff Physician] - 3-5 Days [facility] [Provider Group] - 3-5 Days
--- NOTE | 2018-10-08 23:13 | XRay Report ---
PROCEDURE: XR CHEST ROUTINE 2V TECHNIQUE: PA and lateral chest radiographs were obtained. HISTORY: Syncope COMPARISONS: None. FINDINGS: Heart: Normal. Mediastinum/Vessels: Normal. Lungs/Pleural space: Normal. Bony thorax: No acute osseous abnormality. IMPRESSION: Normal examination. This document is electronically signed by Marc Gipson MD., Oct 08 2018 11:11:07 PM ET
--- NOTE | 2018-10-09 01:24 | Cat Scan Report ---
PROCEDURE: CT ANGIO CHEST TECHNIQUE: Computerized tomographic angiography of the chest was performed after the IV injection of iodinated nonionic contrast including image processing. The image data was postprocessed using 2-di mensional multiplanar reformatted (MPR) and 3-dimensional (MIP and/or volume rendered) techniques. Au tomated exposure control, adjustment of mA and/or kV according to patient size, or iterative reconstr uction dose optimization techniques were utilized. HISTORY: syncope cough hiv + COMPARISONS: None . FINDINGS: Heart and pericardium: Normal. Thoracic aorta: Normal. Pulmonary vasculature: There is no evidence of pulmonary arterial emboli. Lymph nodes: No enlarged thoracic lymph nodes. Lungs: The lungs are clear. No infiltrate, effusion or pneumothorax. Pleural space: No effusion, thickening, or pneumothorax. Musculoskeletal structures: No significant abnormality. Upper abdominal structures: Cholelithiasis.. IMPRESSION: There is no evidence of pulmonary arterial emboli. Lungs are clear without infiltrate, effusion or pneumothorax. . This document is electronically signed by Yashira Atkins DO., Oct 09 2018 01:22:07 AM ET
[2018-10-09 01:46] VITALS: BP 151/93
== END 2018-10-09 01:45 | disposition home or self-care (01) ==
LOC: ED 21:34
DX: J40 Bronchitis, not specified as acute or chronic (principal); I10 Essential (primary) hypertension
CPT/HCPCS: 36415; 70450; 71046; 71275; 80048; 82550; 83735; 84484; 85025; 85379; 85610; 85730; 93005; 93010; 94640; 99285; J7040; Q9967